=== PATIENT | male | born 1995 | race Caucasian/White ===

== ENCOUNTER 2018-03-16 14:26 | Observation (INO) ==
[2018-03-16] MEDS ORDERED: Morphine Inj 4 MG/ML Vial IV.PUSH ONE (16:24)
--- NOTE | 2018-03-16 16:31 | ED ---
HPI General Chief Complaint: Abdominal Pain Stated Complaint: abd pain x 1 day Time Seen by Provider: 03/16/18 16:15 Source: patient Mode of arrival: ambulatory Limitations: no limitations History of Present Illness HPI narrative: Patient is a 23-year-old male with history of cystic fibrosis, presents to the emergency room with complaints of right lower quadrant abdominal pain. Patient reports that he has been having right lower quadrant abdominal pain since yesterday afternoon. Patient reports the pain is constant in nature, reports that the only thing that makes the pain better is by laying still. Reports that he had similar symptoms about 1 year ago and was told that he had infection in his colon, he was prescribed antibiotics and his infection went along with his pain. Patient denies any history of abdominal surgeries in the past. Patient with no fever or chills, no nausea or vomiting or diarrhea. MD complaint: Reports abdominal pain Onset (ago): day(s) (Past 2 days) Pain Consistency: constant Location: Reports RLQ Severity: moderate Quality: Reports aching Radiation: Reports none Migration to: Reports no migration Relieving factors: rest Exacerbating factors: movement Associated symptoms: Reports denies other symptoms Related Data Home Medications Medication Instructions Recorded Confirmed albuterol sulfate [ProAir HFA] 1 puff INHALATION Q4-6H PRN 03/16/18 03/16/18 dornase piero [Pulmozyme] 2.5 mg INHALATION BID 03/16/18 03/16/18 [id number] [Creon] 1 cap PO QID 03/16/18 03/16/18 repaglinide [Prandin] 0.5 mg PO TID 03/16/18 03/16/18 soft lens rinse,store solution 03/16/18 03/16/18 [Saline Solution] Allergies Allergy/AdvReac Type Severity Reaction Status Date / Time No Known Allergies Allergy Verified 03/16/18 14:54 Review of Systems ROS: all other systems reviewed are negative FOR[facility]LY [facility] Medical History Medical History Cystic fibrosis (Acute) Diabetes (Acute) Social History Social History Substance History: No History of Abuse Second Hand Smoke Exposure: No Smoking Status: Never smoker How Often Do You Have a Drink Containing Alcohol: 2 to 4 times a month Recent Travel in [facility] within the Last 8 Weeks: No Recent Out of Country Travel within the Last 8 Weeks: No Exam Narrative Exam Narrative: GENERAL: Moderate distress SKIN: Focused skin assessment warm/dry. HEAD: Atraumatic. Normocephalic. EYES: Pupils equal and round. No scleral icterus. No injection or drainage. ENT: No nasal bleeding or discharge. Mucous membranes pink and moist. NECK: Trachea midline. No JVD. CARDIOVASCULAR: Regular rate and rhythm. No murmur appreciated. RESPIRATORY: No accessory muscle use. Clear to auscultation. Breath sounds equal bilaterally. GASTROINTESTINAL: Abdomen soft, increased tenderness to RLQ with no guarding on exam, nondistended. Hepatic and splenic margins not palpable. MUSCULOSKELETAL: No obvious deformities. No clubbing. No cyanosis. No edema. NEUROLOGICAL: Awake and alert. No obvious cranial nerve deficits. Motor grossly within normal limits. Normal speech. PSYCHIATRIC: Appropriate mood and affect; insight and judgment normal. Course Initial Documented Vital Signs Temperature 97.9 F 03/16/18 14:56 Pulse Rate 77 03/16/18 14:56 Respiratory Rate 16 03/16/18 14:56 Blood Pressure 110/66 03/16/18 14:56 Pulse Oximetry 98 03/16/18 14:56 Last Documented Vital Signs Temperature 97.9 F 03/16/18 14:56 Pulse Rate 77 03/16/18 14:56 Respiratory Rate 16 03/16/18 14:56 Blood Pressure 110/66 03/16/18 14:56 Pulse Oximetry 98 03/16/18 14:56 Medical Decision Making [facility] Narrative Medical decision making narrative: During the course of the patients emergency department visit, the patients history, examination, and differential diagnosis were reviewed with the patient. The patient was placed on a cardiac nurse specialist with oximetry and frequent blood pressure monitoring. The patient had an IV access obtained and blood work sent for analysis. The patient was initially provided IVF as well as morphine for pain relief CT of abdomen/pelvis with IV and PO contrast ordered. The patients laboratory studies were reviewed and remarkable for: wbc 12.6, hemoglobin 15.2, hematocrit 43.5, platelets 289 PT 10.7, INR 1.1 Sodium 140, potassium 4.0, BUN 13, creatinine 1.20, glucose 63 UA: neg for leuk esterase, negative for nitrates Radiology studies were reviewed and remarkable for: CT the abdomen and pelvis shows diffuse cecal and ascending colonic wall thickening extending to the hepatic flexure with mild surrounding inflammatory change and prominence of the appendix measuring up to 11 mm. Although proximal colonic wall thickening and pericolonic stranding could commonly be seen in cystic fibrosis patients, colitis cannot be excluded by imaging. Appendicitis is felt to be unlikely with prominence of the appendix most likely secondary to colonic abnormalities. Clinical and laboratory correlation is recommended. Patient does have pain to the right lower quadrant, he had similar symptoms last year was diagnosed with colitis, reports that there was also concern for possible appendicitis. Given his elevated white blood cell count of 12.6, plan to administer ciprofloxacin as well as Flagyl. Will admit patient for serial abdominal evaluations as well as for a general surgery consult. Patient is agreeable to admission to hospital for observation Medical Screen Exam Complete: Yes Emergency Medical Condition: Yes Differential Diagnosis Differential Diagnosis: Appendicitis, colitis, diverticulitis, uti Medical Records Medical records reviewed: Yes I reviewed the patient's medical records. Lab Data Result diagrams: 03/16/18 16:40 03/16/18 16:40 Lab Results 03/16/18 03/16/18 03/16/18 Range/Units 16:35 16:40 16:40 CBC w Diff Auto diff final WBC 12.6 H (4.0-11.0) th/mm3 RBC 4.97 (4.50-5.90) mil/mm3 Hgb 15.2 (13.0-17.0) gm/dL Hct 43.5 (39.0-51.0) % MCV 87.6 (80.0-100.0) fL MCH 30.5 (27.0-34.0) pg MCHC 34.9 (32.0-36.0) % RDW 12.1 (11.6-17.2) % Plt Count 289 (150-450) th/mm3 MPV 10.2 (7.0-11.0) fL Neut % (Auto) 75.5 H (16.0-70.0) % Lymph % (Auto) 16.7 (9.0-44.0) % [place] % (Auto) 5.7 (0.0-8.0) % Eos % (Auto) 1.8 (0.0-4.0) % Baso % (Auto) 0.3 (0.0-2.0) % Neut # (Auto) 9.6 H (1.8-7.7) th/mm3 Lymph # (Auto) 2.1 (1.0-4.8) th/mm3 [place] # (Auto) 0.7 (0.0-0.9) th/mm3 Eos # (Auto) 0.2 (0.0-0.4) th/mm3 Baso # (Auto) 0.0 (0.0-0.2) th/mm3 WBC Differential . Differential Comment . PT 10.7 (9.8-11.6) sec INR 1.1 Ratio APTT 27.9 (24.3-30.1) sec Sodium (136-145) meq/L Potassium (3.5-5.1) meq/L Chloride (98-107) meq/L Carbon Dioxide (21.0-32.0) meq/L Anion Gap (5-15) meq/L BUN (7-18) mg/dL Creatinine (0.60-1.30) mg/dL Estimated GFR (>89) mL/min Random Glucose (74-106) mg/dL Calcium (8.5-10.1) mg/dL Total Bilirubin (0.2-1.0) mg/dL AST (15-37) U/L ALT (12-78) U/L Alkaline Phosphatase (45-117) U/L Total Protein (6.4-8.2) g/dL Albumin (3.4-5.0) g/dL Lipase (73-393) U/L Urine Color Yellow (Yellw/Straw) Urine Clarity Clear (Clear) Urine pH 6.0 (5.0-8.5) Ur Specific [place] 1.025 (1.002-1.035) Urine Protein Negative (Neg-Trace) mg/dL Urine Glucose (UA) Negative (Negative) mg/dL Urine Ketones Negative (Negative) mg/dL Urine Occult Blood Negative (Negative) Urine Nitrate Negative (Negative) Urine Bilirubin Negative (Negative) Urine Urobilinogen 0.2 (Less than 2) mg/dL Ur Leukocyte Esterase Negative (Negative) Urine WBC 0-5 (0-5) /hpf Micro UA Comment Culture not ind Ur Microscopic Review Microscopic reviewed Urine Culture Comments Culture not ind 03/16/18 Range/Units 16:40 CBC w Diff WBC (4.0-11.0) th/mm3 RBC (4.50-5.90) mil/mm3 Hgb (13.0-17.0) gm/dL Hct (39.0-51.0) % MCV (80.0-100.0) fL MCH (27.0-34.0) pg MCHC (32.0-36.0) % RDW (11.6-17.2) % Plt Count (150-450) th/mm3 MPV (7.0-11.0) fL Neut % (Auto) (16.0-70.0) % Lymph % (Auto) (9.0-44.0) % [place] % (Auto) (0.0-8.0) % Eos % (Auto) (0.0-4.0) % Baso % (Auto) (0.0-2.0) % Neut # (Auto) (1.8-7.7) th/mm3 Lymph # (Auto) (1.0-4.8) th/mm3 [place] # (Auto) (0.0-0.9) th/mm3 Eos # (Auto) (0.0-0.4) th/mm3 Baso # (Auto) (0.0-0.2) th/mm3 WBC Differential Differential Comment PT (9.8-11.6) sec INR Ratio APTT (24.3-30.1) sec Sodium 140 (136-145) meq/L Potassium 4.0 (3.5-5.1) meq/L Chloride 104 (98-107) meq/L Carbon Dioxide 29.5 (21.0-32.0) meq/L Anion Gap 7 (5-15) meq/L BUN 13 (7-18) mg/dL Creatinine 1.20 (0.60-1.30) mg/dL Estimated GFR 76 L (>89) mL/min Random Glucose 63 L (74-106) mg/dL Calcium 8.6 (8.5-10.1) mg/dL Total Bilirubin 0.5 (0.2-1.0) mg/dL AST 38 H (15-37) U/L ALT 42 (12-78) U/L Alkaline Phosphatase 221 H (45-117) U/L Total Protein 7.4 (6.4-8.2) g/dL Albumin 3.0 L (3.4-5.0) g/dL Lipase 29 L (73-393) U/L Urine Color (Yellw/Straw) Urine Clarity (Clear) Urine pH (5.0-8.5) Ur Specific [place] (1.002-1.035) Urine Protein (Neg-Trace) mg/dL Urine Glucose (UA) (Negative) mg/dL Urine Ketones (Negative) mg/dL Urine Occult Blood (Negative) Urine Nitrate (Negative) Urine Bilirubin (Negative) Urine Urobilinogen (Less than 2) mg/dL Ur Leukocyte Esterase (Negative) Urine WBC (0-5) /hpf Micro UA Comment Ur Microscopic Review Urine Culture Comments Imaging Data Radiologist's impression: Abdomen/Pelvis CT 03/16/18 16:24 CONCLUSION: 1. Diffuse cecal and ascending colonic wall thickening extending to the hepatic flexure with mild surrounding inflammatory change and prominence of the appendix measuring up to 11 mm. Although proximal colonic wall thickening and pericolonic stranding can be commonly seen in cystic fibrosis patients, colitis cannot be excluded by imaging. Appendicitis is felt to be unlikely with prominence of the appendix most likely secondary to the colonic abnormality. Clinical and laboratory correlation is recommended. 2. Bronchiectasis and patchy airspace disease in the lingula, right middle lobe and anterior right lung base characteristic of cystic fibrosis. Discharge Plan Discharge Disposition Patient Disposition: 30 Still Patient Discharge Condition Condition: Fair Discharge Details Diagnosis: Colitis Physicians Team ED Provider: Cecile Heath Primary Care Provider: Primary Care Caridad Easton Rxs /Orders / Referrals /Forms Prescriptions: No Action dornase piero [Pulmozyme] 1 mg/mL Solution 2.5 mg INHALATION BID RF: 0 albuterol sulfate [ProAir HFA] 90 mcg/actuation Hfa Aerosol Inhaler 1 puff INHALATION Q4-6H PRN (Reason: Wheezing) RF: 0 soft lens rinse,store solution [Saline Solution] Solution RF: 0 [id number] [Creon] 36,000-114,000- 180,000 unit Capsule,Delayed Release(Dr/Ec) 1 cap PO QID RF: 0 repaglinide [Prandin] 1 mg Tablet 0.5 mg PO TID RF: 0 Discharge Interventions Interventions: Vital Signs Last Done: 03/16/18 16:26 Status ED Status: With Doctor
[2018-03-16] MEDS ORDERED: Diatrizoate Meglum/Diatrizoate Sod Liq 9 ML UDC ONE (16:37)
[2018-03-16 16:56] LABS: Baso % (Auto) 0.3 % (0.0-2.0); Eos # (Auto) 0.2 th/mm3 (0.0-0.4); Eos % (Auto) 1.8 % (0.0-4.0); Hematocrit 43.5 % (39.0-51.0); Hemoglobin 15.2 gm/dL (13.0-17.0); Lymph # (Auto) 2.1 th/mm3 (1.0-4.8); Lymph % (Auto) 16.7 % (9.0-44.0); Mean Corpuscular HGB Conc 34.9 % (32.0-36.0); Mean Corpuscular Hemoglobin 30.5 pg (27.0-34.0); Mean Corpuscular Volume 87.6 fL (80.0-100.0); Mean Platelet Volume 10.2 fL (7.0-11.0); Mono # (Auto) 0.7 th/mm3 (0.0-0.9); Mono % (Auto) 5.7 % (0.0-8.0); Neut # (Auto) 9.6 th/mm3 (1.8-7.7); Neut % (Auto) 75.5 % (16.0-70.0); Platelet Count 289 th/mm3 (150-450); Red Blood Count 4.97 mil/mm3 (4.50-5.90); Red Cell Distribution Width 12.1 % (11.6-17.2); White Blood Count 12.6 th/mm3 (4.0-11.0)
[2018-03-16 17:01] LABS: Bilirubin,Urine Negative (Negative); Clarity,Urine Clear (Clear); Color,Urine Yellow (Yellw/Straw); Glucose,Urine (UA) Negative (Negative); Leukocyte Esterase,Urine Negative (Negative); Nitrite,Urine Negative (Negative); Specific Gravity,Urine 1.025 (1.002-1.035); Urobilinogen,Urine 0.2 mg/dL (Less than 2)
[2018-03-16 17:08] LABS: WBC,Urine 0-5 /hpf (0-5)
[2018-03-16 17:08] LABS: Chloride 104 meq/L (98-107); Sodium 140 meq/L (136-145)
[2018-03-16 17:12] LABS: Anion Gap 7 meq/L (5-15); Calcium 8.6 mg/dL (8.5-10.1); Carbon Dioxide 29.5 meq/L (21.0-32.0); Glucose,Random 63 mg/dL (74-106); Lipase 29 U/L (73-393)
[2018-03-16 17:13] LABS: Activated Partial Thrombo Time 27.9 sec (24.3-30.1); Blood Urea Nitrogen 13 mg/dL (7-18); INR 1.1 Ratio; Prothrombin Time 10.7 sec (9.8-11.6)
[2018-03-16 17:15] LABS: Alanine Aminotransferase 42 U/L (12-78); Aspartate Aminotransferase 38 U/L (15-37); Glomerular Filtration Rate 76 mL/min (>89)
[2018-03-16 17:17] LABS: Total Protein 7.4 g/dL (6.4-8.2)
[2018-03-16 17:18] LABS: Alkaline Phosphatase 221 U/L (45-117)
--- NOTE | 2018-03-16 18:35 | CT ---
EXAM DATE: 03/16/2018 5:58 PM EDT AGE/SEX: 23 years / Male INDICATIONS: Right lower abdomen pain CLINICAL DATA: This is the patient's initial encounter. Patient reports that signs and symptoms have been present for 1 day and indicates a pain score of 7/10. MEDICAL/SURGICAL HISTORY: Diabetes. Cystic fibrosis None. ORAL CONTRAST: Prescribed oral contrast ingested. RADIATION DOSE: 5.13 CTDI (mGy) COMPARISON: No prior exams available for comparison. TECHNIQUE: Multiple contiguous axial images were obtained through the abdomen and pelvis following b olus infusion of 95ML ml Omnipaque 350 (iohexol) nonionic water-soluble contrast as a single exam d ose. Prescribed oral contrast ingested. Using automated exposure control and adjustment of the mA an d/or kV according to patient size, radiation dose was kept as low as reasonably achievable to obtain optimal diagnostic quality images. DICOM format image data is available electronically for review an d comparison. FINDINGS: LOWER LUNGS: Diffuse bronchiectasis and patchy groundglass opacities in the lingula, right middle lo be and anterior right lung base. This is consistent with patient's history of cystic fibrosis. LIVER: The liver has a homogeneous density without space-occupying lesion. There is no dilation of t he biliary tree. SPLEEN: Spleen is enlarged measuring approximately 17.5 cm. PANCREAS: Near-complete fatty replacement of the pancreas consistent with patient's history of cysti c fibrosis. KIDNEYS: Kidneys demonstrate symmetrical enhancement and are symmetrical in size without evidence fo r radiopaque renal calculi or hydronephrosis. ADRENAL GLANDS: Unremarkable. AORTA: Emy-aneurysmal. BOWEL/MESENTERY: There is slight prominence of the distal ileum with circumferential cecal and less prominent diffuse descending colonic wall thickening with pericecal inflammatory change. The appendix is prominent in size measuring up to 11 mm with minimal periappendiceal stranding. Remainder of the bowel appears unremarkable. No evidence for obstruction. No free air or pneumatosis. No significant f ree fluid or drainable fluid collections. ABDOMINAL WALL: Intact. RETROPERITONEUM: No evidence of adenopathy in the retrocrural, para-aortic, or deep pelvic regions. BLADDER: Contours are smooth. REPRODUCTIVE: No abnormal masses or calcifications seen. BONY STRUCTURES: Unremarkable. CONCLUSION: 1. Diffuse cecal and ascending colonic wall thickening extending to the hepatic flexure with mild singleton rrounding inflammatory change and prominence of the appendix measuring up to 11 mm. Although proximal colonic wall thickening and pericolonic stranding can be commonly seen in cystic fibrosis patients, colitis cannot be excluded by imaging. Appendicitis is felt to be unlikely with prominence of the lety endix most likely secondary to the colonic abnormality. Clinical and laboratory correlation is recomm ended. 2. Bronchiectasis and patchy airspace disease in the lingula, right middle lobe and anterior right l suly base characteristic of cystic fibrosis. Electronically signed by: Danish Shelton MD 03/16/2018 6:34 PM EDT
[2018-03-16] MEDS ORDERED: Ciprofloxacin 400 MG/200 ML 400 MG/200 ML PIGGYBACK IV.SIG ONE (18:42)
[2018-03-16] MEDS ORDERED: Acetaminophen 325 MG Tablet PO PRN (20:07)
[2018-03-16] MEDS: Sodium Chloride 0.45 % Inj 1,000 ML IV.CONT SCH (22:54)
[2018-03-17 06:52] LABS: Baso # (Auto) 0.1 th/mm3 (0.0-0.2); Baso % (Auto) 0.7 % (0.0-2.0); Eos # (Auto) 0.2 th/mm3 (0.0-0.4); Eos % (Auto) 2.5 % (0.0-4.0); Hematocrit 41.5 % (39.0-51.0); Lymph # (Auto) 2.1 th/mm3 (1.0-4.8); Lymph % (Auto) 24.4 % (9.0-44.0); Mean Corpuscular HGB Conc 33.8 % (32.0-36.0); Mean Corpuscular Hemoglobin 29.6 pg (27.0-34.0); Mean Corpuscular Volume 87.6 fL (80.0-100.0); Mean Platelet Volume 10.3 fL (7.0-11.0); Mono # (Auto) 0.6 th/mm3 (0.0-0.9); Mono % (Auto) 6.7 % (0.0-8.0); Neut # (Auto) 5.8 th/mm3 (1.8-7.7); Neut % (Auto) 65.7 % (16.0-70.0); Platelet Count 243 th/mm3 (150-450); Red Blood Count 4.74 mil/mm3 (4.50-5.90); White Blood Count 8.8 th/mm3 (4.0-11.0)
[2018-03-17 07:14] LABS: Chloride 104 meq/L (98-107); Sodium 140 meq/L (136-145)
[2018-03-17 07:18] LABS: Calcium 8.4 mg/dL (8.5-10.1)
[2018-03-17 07:19] LABS: Anion Gap 7 meq/L (5-15); Blood Urea Nitrogen 13 mg/dL (7-18); Carbon Dioxide 29.2 meq/L (21.0-32.0); Glucose,Random 79 mg/dL (74-106)
[2018-03-17 07:22] LABS: Glomerular Filtration Rate Greater Than 89 mL/min (>89)
--- NOTE | 2018-03-17 08:19 | P.HP ---
History of Present Illness Primary Care Physician: No Primary Care Physician Chief Complaint: Abdominal pain History of Present Illness: 23-year-old male with known history of cystic fibrosis, diabetes, history of colitis who presented to the hospital for evaluation of abdominal pain. Patient states that on Sunday he started developing right lower quadrant abdominal pain whenever he moved. Whenever he lays still he had no pain. The pain will get up to a 7/10 on a pain scale. He does have history of colitis in which his first episode was in March of last year where he was admitted to the hospital in [place]. Patient was given Cipro and Flagyl at that time. Remained in the hospital one day and was discharged home on antibiotics. Patient not had any recurrences until Sunday. He states that the pain is similar to the pain he had a year ago. At the time evaluating the patient he is feeling much better. Patient is not having any pain whenever he moves at this time. Patient had workup done and CT findings does indicate colitis. ER physician recommended the patient be observed in the hospital for further recommendations. - Diagnosis (1) Colitis Review of Systems All other systems reviewed negative except as stated in HPI Gastrointestinal: Reports abdominal pain PMFSH - History History Provided By: Patient - Medical History Medical History: Medical History (Last Updated 03/17/18 @ 08:15 by SHA York) Cystic fibrosis Diabetes History of colitis - Surgical History Surgical History: Surgical History (Last Updated 03/17/18 @ 08:08 by SHA York) No history of previous surgery - Family History Family History: Family History (Last Updated 03/17/18 @ 08:08 by SHA York) Other No pertinent family history - Tobacco History Second Hand Smoke Exposure: No Smoking Status: Never smoker - Alcohol History How Often Do You Have a Drink Containing Alcohol: Never - Substance Use History Substance History: No History of Abuse - Travel History Recent Travel in the [place] Within the Last 8 Weeks: No Recent Travel Out of the Country Within the Last 8 Weeks: No - Immunization History Tetanus Immunization: Unable to Assess Medications and Allergies Active Medications: Active Medications Acetaminophen (Tylenol) 650 mg PO Q4H PRN PRN Reason: Temp > 100.4 Al Hydroxide/Mg Hydroxide (Milk Of Magnesia Liq) 30 ml PO Q12H PRN PRN Reason: Mild Constipation Sodium Chloride (1/2 Normal Saline Inj) 1,000 mls @ 75 mls/hr IV.CONT .[id number] TUAN Last Infusion: 03/17/18 06:31 Dose: 75 mls/hr Ciprofloxacin/Dextrose (Cipro 400 Mg/200 Ml Inj) 400 mg in 200 mls @ 200 mls/ hr IV.SIG Q12H TUAN Metronidazole/Sodium Chloride (Flagyl 500 Mg Inj) 100 mls @ 100 mls/hr IV.SIG Q8H TUAN Last Infusion: 03/17/18 07:31 Dose: Infused Ondansetron HCl (Zofran Inj) 4 mg IV.PUSH Q6H PRN PRN Reason: NAUSEA OR VOMITING Sodium Chloride (Ns Flush) 2 ml IV.FLUSH PRN PRN PRN Reason: FLUSH AFTER USING IV ACCESS Allergies Allergy/AdvReac Type Severity Reaction Status Date / Time No Known Allergies Allergy Verified 03/16/18 14:54 Home Medications Medication Instructions Recorded Confirmed Type albuterol sulfate [ProAir HFA] 1 puff INHALATION Q4-6H PRN 03/16/18 03/16/18 History dornase piero [Pulmozyme] 2.5 mg INHALATION BID 03/16/18 03/16/18 History [id number] [Creon] 1 cap PO QID 03/16/18 03/16/18 History repaglinide [Prandin] 0.5 mg PO TID 03/16/18 03/16/18 History soft lens rinse,store solution 03/16/18 03/16/18 History [Saline Solution] Exam Vital signs: Vital Signs 03/16/18 14:56 03/16/18 18:00 03/16/18 19:19 Temperature 97.9 F Pulse Rate 77 67 78 Respiratory Rate 16 16 16 Blood Pressure 110/66 108/62 112/62 Pulse Oximetry 98 98 03/16/18 21:13 03/17/18 00:00 Temperature 97.6 F 97.0 F L Pulse Rate 71 70 Respiratory Rate 18 16 Blood Pressure 125/60 110/53 L Pulse Oximetry 93 L 98 Intake & Output 03/16/18 03/17/18 03/17/18 18:59 06:59 18:59 Intake Total 900 / 900 100 / 100 Balance 900 / 900 100 / 100 Weight 64 kg 62.8 kg Intake: IV 900 / 900 100 / 100 1/2 Normal Saline Inj 1,000 ML 600 / 600 @ 75 mls/hr IV.CONT .[id number] [facility] Rx#:[id number] Cipro 400 MG/200 ML Inj 400 mg 200 / 200 In 200 ml @ 200 mls/hr IV.SIG ONCE ONE Rx#:[id number] Flagyl 500 MG Inj 100 ML @ 100 100 / 100 100 / 100 mls/hr IV.SIG Q8H TUAN Rx#: [id number] Other: # Voids 2 Date of Last Bowel Movement 03/16/18 Weight On Admission 62.8 kg Narrative: GENERAL: Well-developed, well-nourished, in no acute distress. alert and orientated HEENT: Head is normocephalic without any lesions or masses noted. Facial features are symmetric. Eyes: Pupils equal round reactive to light. Extraocular muscles are intact. Conjunctivae were clear. Oropharyngeal: Pharynx without any erythema edema. Tongue is midline without deviation. Buccal mucosa is moist without any masses or lesions NECK: Supple without any masses. Trachea midline no deviation. No JVD, no bruits are appreciated CARDIAC: Regular rhythm, regular rate. S1/S2 are heard. No murmurs gallops or rubs. LUNGS: Clear to auscultation bilaterally. No wheeze, rhonchi or rales. No use of accessory muscles on inspiration or expiration. ABDOMEN: Soft, nontender. Nondistended. Bowel sounds heard in all 4 quadrants. No organomegaly or masses. Negative rebound, negative guarding EXTREMITIES: No edema, pulses are equal bilaterally. No cyanosis or clubbing NEUROLOGY: Mood and affect appear appropriate. Cranial nerves II through XII grossly intact. Muscle strength 5/5 in upper and lower extremities bilaterally. Deep tendon reflexes are 2+ in upper and lower extremities bilaterally. Results - Labs CBC & Chem 7: 03/17/18 06:21 03/17/18 06:21 Labs: Laboratory Results - last 24 hr 03/16/18 03/16/18 03/16/18 16:35 16:40 16:40 CBC w Diff Auto diff final WBC 12.6 H RBC 4.97 Hgb 15.2 Hct 43.5 MCV 87.6 MCH 30.5 MCHC 34.9 RDW 12.1 Plt Count 289 MPV 10.2 Neut % (Auto) 75.5 H Lymph % (Auto) 16.7 [place] % (Auto) 5.7 Eos % (Auto) 1.8 Baso % (Auto) 0.3 Neut # (Auto) 9.6 H Lymph # (Auto) 2.1 [place] # (Auto) 0.7 Eos # (Auto) 0.2 Baso # (Auto) 0.0 WBC Differential . Differential Comment . PT 10.7 INR 1.1 APTT 27.9 Sodium Potassium Chloride Carbon Dioxide Anion Gap BUN Creatinine Estimated GFR POC Glucose Random Glucose Calcium Total Bilirubin AST ALT Alkaline Phosphatase Total Protein Albumin Lipase Urine Color Yellow Urine Clarity Clear Urine pH 6.0 Ur Specific [place] 1.025 Urine Protein Negative Urine Glucose (UA) Negative Urine Ketones Negative Urine Occult Blood Negative Urine Nitrate Negative Urine Bilirubin Negative Urine Urobilinogen 0.2 Ur Leukocyte Esterase Negative Urine WBC 0-5 Micro UA Comment Culture not ind Ur Microscopic Review Microscopic reviewed Urine Culture Comments Culture not ind 03/16/18 03/16/18 03/17/18 16:40 20:01 06:21 CBC w Diff Auto diff final WBC 8.8 RBC 4.74 Hgb 14.0 Hct 41.5 MCV 87.6 MCH 29.6 MCHC 33.8 RDW 12.0 Plt Count 243 MPV 10.3 Neut % (Auto) 65.7 Lymph % (Auto) 24.4 [place] % (Auto) 6.7 Eos % (Auto) 2.5 Baso % (Auto) 0.7 Neut # (Auto) 5.8 Lymph # (Auto) 2.1 [place] # (Auto) 0.6 Eos # (Auto) 0.2 Baso # (Auto) 0.1 WBC Differential . Differential Comment . PT INR APTT Sodium 140 Potassium 4.0 Chloride 104 Carbon Dioxide 29.5 Anion Gap 7 BUN 13 Creatinine 1.20 Estimated GFR 76 L POC Glucose 95 Random Glucose 63 L Calcium 8.6 Total Bilirubin 0.5 AST 38 H ALT 42 Alkaline Phosphatase 221 H Total Protein 7.4 Albumin 3.0 L Lipase 29 L Urine Color Urine Clarity Urine pH Ur Specific [place] Urine Protein Urine Glucose (UA) Urine Ketones Urine Occult Blood Urine Nitrate Urine Bilirubin Urine Urobilinogen Ur Leukocyte Esterase Urine WBC Micro UA Comment Ur Microscopic Review Urine Culture Comments 03/17/18 06:21 CBC w Diff WBC RBC Hgb Hct MCV MCH MCHC RDW Plt Count MPV Neut % (Auto) Lymph % (Auto) [place] % (Auto) Eos % (Auto) Baso % (Auto) Neut # (Auto) Lymph # (Auto) [place] # (Auto) Eos # (Auto) Baso # (Auto) WBC Differential Differential Comment PT INR APTT Sodium 140 Potassium 4.0 Chloride 104 Carbon Dioxide 29.2 Anion Gap 7 BUN 13 Creatinine 1.00 Estimated GFR Greater than 89 POC Glucose Random Glucose 79 Calcium 8.4 L Total Bilirubin AST ALT Alkaline Phosphatase Total Protein Albumin Lipase Urine Color Urine Clarity Urine pH Ur Specific [place] Urine Protein Urine Glucose (UA) Urine Ketones Urine Occult Blood Urine Nitrate Urine Bilirubin Urine Urobilinogen Ur Leukocyte Esterase Urine WBC Micro UA Comment Ur Microscopic Review Urine Culture Comments - Imaging Impressions Abdomen/Pelvis CT 03/16/18 16:24 CONCLUSION: 1. Diffuse cecal and ascending colonic wall thickening extending to the hepatic flexure with mild surrounding inflammatory change and prominence of the appendix measuring up to 11 mm. Although proximal colonic wall thickening and pericolonic stranding can be commonly seen in cystic fibrosis patients, colitis cannot be excluded by imaging. Appendicitis is felt to be unlikely with prominence of the appendix most likely secondary to the colonic abnormality. Clinical and laboratory correlation is recommended. 2. Bronchiectasis and patchy airspace disease in the lingula, right middle lobe and anterior right lung base characteristic of cystic fibrosis. Caprini VTE Risk Assessment Caprini VTE Risk Assessment: No/Low Risk (score <= 1) Caprini Risk Assessment Model: Point Value = 1 Point Value = 2 Point Value = 3 Point Value = 5 Age 41-60 Minor surgery BMI > 25 kg/m2 Swollen legs Varicose veins or History of unexplained or recurrent spontaneous Oral contraceptives or hormone replacement Sepsis (< 1 month) Serious lung disease, including pneumonia (< 1 month) Abnormal pulmonary function Acute myocardial infarction Congestive heart failure (< 1 month) History of inflammatory bowel disease Medical patient at bed rest Age 61-74 Arthroscopic surgery Major open surgery (> 45 min) Laparoscopic surgery (> 45 min) Malignancy Confined to bed (> 72 hours) Immobilizing plaster cast Central venous access Age >= 75 History of VTE Family history of VTE Factor V Leiden Prothrombin [id number] Lupus anticoagulant Anticardiolipin antibodies Elevated serum homocysteine Heparin-induced thrombocytopenia Other congenital or acquired thrombophilia Stroke (< 1 month) Elective arthroplasty Hip, pelvis, or leg fracture Acute spinal cord injury (< 1 month) Prophylaxis Regimen: Total Risk Factor Score Risk Level Prophylaxis Regimen 0-1 Low Early ambulation 2 Moderate Order ONE of the following: *Sequential Compression Device (SCD) *Heparin 5000 units SQ BID 3-4 Higher Order ONE of the following medications: *Heparin 5000 units SQ TID *Enoxaparin/Lovenox 40 mg SQ daily (WT < 150 kg, CrCl > 30 mL/min) *Enoxaparin/Lovenox 30 mg SQ daily (WT < 150 kg, CrCl > 10-29 mL/min) *Enoxaparin/Lovenox 30 mg SQ BID (WT < 150 kg, CrCl > 30 mL/min) AND/OR *Sequential Compression Device (SCD) 5 or more Highest Order ONE of the following medications: *Heparin 5000 units SQ TID (Preferred with Epidurals) *Enoxaparin/Lovenox 40 mg SQ daily (WT < 150 kg, CrCl > 30 mL/min) *Enoxaparin/Lovenox 30 mg SQ daily (WT < 150 kg, CrCl > 10-29 mL/min) *Enoxaparin/Lovenox 30 mg SQ BID (WT < 150 kg, CrCl > 30 mL/min) AND *Sequential Compression Device (SCD) Assessment and Plan - Assessment (1) Colitis Code(s): K52.9 - Noninfective gastroenteritis and colitis, unspecified Status : Acute - Plan Colitis -Patient presented with right lower quadrant abdominal pain with abnormal CT finding -CT scan did indicate. Diffuse cecal and ascending colonic wall thickening extending to the hepatic flexure with mild surrounding inflammatory change and prominence of the appendix measuring up to 11 mm. Although proximal colonic wall thickening and pericolonic stranding can be commonly seen in cystic fibrosis patients, colitis cannot be excluded by imaging. Appendicitis is felt to be unlikely with prominence of the appendix most likely secondary to the colonic abnormality. -Patient was started on Cipro and Flagyl -General surgery consulted for further recommendations -Discussed with general surgery who reviewed the CT scan. Discussed with the family. States that if patient tolerates diet he can be discharged home with oral antibiotics. Cystic fibrosis -Continue home medications Diabetes -Accu-Cheks with sliding scale insulin DVT prevention -Low risk, early ambulation
[2018-03-17] MEDS ORDERED: Ciprofloxacin 400 MG/200 ML 400 MG/200 ML PIGGYBACK IV.SIG SCH (09:00)
[2018-03-17 09:29] VITALS: RESP 20; O2SAT 97
[2018-03-17] MEDS: Sodium Chloride 0.45 % Inj 1,000 ML IV.CONT SCH ×2 (11:41→12:23)
[2018-03-17 16:59] VITALS: BP 115/59; PULSE 63; TEMP 96.3
--- NOTE | 2018-03-17 19:43 | MB ---
cc: German Prajapati MD, Eric MD DATE: 03/17/2018 PHYSICIAN REQUESTING CONSULTATION: Colton Macias MD REASON FOR CONSULTATION: Colitis. 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 The patient states the pain began increasing gradually over the last 24 hours and he was concerned about appendicitis. The patient did say he has had this pain prior about a year ago and he was treated with antibiotics and without surgery in [place]. The patient denies any nausea, vomiting, fevers, chills, night sweats, constipation or diarrhea, though the patient has some on and off mild chronic constipation. A CT scan did show colitis; however, the appendix was also mildly prominent without any obvious stranding around it. General surgery was asked to assist in management and evaluate the patient. REVIEW OF SYSTEMS: A 12-point review of systems was conducted with the patient and is negative except for the pertinent positives mentioned above in the history of present illness. PAST MEDICAL HISTORY: Cystic fibrosis. PAST SURGICAL HISTORY: None. ALLERGIES: NO KNOWN DRUG ALLERGIES. MEDICATIONS: 1. Albuterol. 2. Pulmozyme. 3. Creon. 4. Prandin. SOCIAL HISTORY: The patient is a college student. Denies smoking or illicit drug use. Occasionally uses alcohol. FAMILY HISTORY: Noncontributory, reviewed. PHYSICAL EXAMINATION: VITAL SIGNS: Temperature 96.7 degrees, heart rate 53, blood pressure 104/58, O2 saturation 97%. GENERAL: The patient is a thin, well-developed, well-nourished, male in no acute distress. HEENT: Head is normocephalic, atraumatic. Pupils are round, reactive and accommodating to light. Sclerae are anicteric. Oral cavity is clear. Airway is patent. NECK: Supple. No JVD, no lymphadenopathy. CHEST: Breath sounds are present bilaterally. HEART: Regular rate and rhythm. No murmurs. ABDOMEN: Soft, nondistended. Normal bowel sounds. No organomegaly. No ascites. No surgical scars. No hernias. BACK: No CVA tenderness. EXTREMITIES: No clubbing, cyanosis or edema. NEUROLOGIC: The patient is alert and oriented x 3. Mood, judgment and insight are intact. Nonfocal peripheral exam. LABORATORY VALUES: Unremarkable with white blood cell count within normal limits. IMAGING: CT scan had colitis with some prominence of the appendix associated with the colitis. 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 I do not think the patient has an acute appendicitis as in the classic obstruction of the appendix with appendicitis. He does have his appendix which is part of his colon that is involved in his overall colitis, which is in the entire right side of his colon. He is clinically responding to medical management with intravenous antibiotics and bowel rest. I agree with the current management. I discussed with the patient and his mother about long-term management and followup of cystic fibrosis and recurrent colitis and the patient may require a colonoscopy electively back home in [place] with his home doctors. He can advance his diet and if he tolerates this without any recurrent symptoms or pain, the patient can be discharged from a surgery standpoint. Thank you very much for this consultation. MD AGUSTIN Lieberman/bhavin , 04:28 PM , 04:38 PM
== END 2018-03-17 17:08 | disposition home or self-care (01) ==
LOC: PHED 14:26 → PHEDA 14:26 → PH3 20:58
PROVIDERS: ADMIT Hospitalist; ATTEND Hospitalist